=== PATIENT | female | born 1960 | race Caucasian/White ===

== ENCOUNTER 2020-12-09 18:51 | Inpatient (IN) | payer OTHER ==
[2020-12-09 21:01] VITALS: BMI 21.1
[2020-12-09] MEDS ORDERED: MENTHOL/PHENOL 1 EACH UD MM PRN (22:21)
[2020-12-09] MEDS ORDERED: NICOTINE POLACRILEX 2 MG GUM BUC PRN (22:21)
[2020-12-09] MEDS ORDERED: MAG HYDROX/AL HYDROX/SIMETH 30 ML UNIT-DOSE CUP PO PRN (22:21)
[2020-12-09] MEDS ORDERED: MAGNESIUM CITRATE 300 ML BOTTLE PO PRN (22:21)
[2020-12-09] MEDS ORDERED: BISMUTH SUBSALICYLATE 524 MG/30 ML UD PO PRN (22:21)
[2020-12-09] MEDS ORDERED: MAGNESIUM HYDROX 2400MG/30ML ORAL SUSPENSION 30 ML CUP PO PRN (22:21)
[2020-12-09] MEDS ORDERED: ACETAMINOPHEN 325 MG TABLET (FP) PO PRN (22:21)
[2020-12-10] MEDS: IBUPROFEN 400 MG TABLET (FP) PO PRN (02:20)
[2020-12-10] MEDS: METHOCARBAMOL 500 MG TABLET PO PRN ×2 (02:20→10:10)
[2020-12-10 09:31] LABS: HEMATOCRIT 40.2 % (32.4-45.2); HEMOGLOBIN 13.3 GM/dL (10.7-15.3); MCH 28.6 pg (25.7-33.7); MEAN CELL VOLUME 86.7 fl (80-96); MEAN PLT VOLUME 8.8 fl (7.5-11.1); PLATELET COUNT 297 K/MM3 (134-434); RBC 4.64 M/mm3 (3.60-5.2); RDW 17.3 % (11.6-15.6); WHITE BLOOD COUNT 8.4 K/mm3 (4.0-10.0)
[2020-12-10 09:41] LABS: ALBUMIN 3.3 g/dl (3.4-5.0)
[2020-12-10 09:42] LABS: BLOOD UREA NITROGEN 12.5 mg/dL (7-18)
[2020-12-10 09:45] LABS: CREATININE 0.8 mg/dL (0.55-1.3)
[2020-12-10 09:46] LABS: BILIRUBIN,TOTAL 0.8 mg/dL (0.2-1); TOT PROT 6.4 g/dl (6.4-8.2)
[2020-12-10] MEDS: NICOTINE 21 MG/24 HOURS TOPICAL PATCH TD SCH (10:08)
[2020-12-10] MEDS: chlordiazePOXIDE HCL 25 MG CAPSULE PO SCH ×3 (10:08→22:07)
[2020-12-10] MEDS: PRENATAL VITAMINS W/ FOLIC ACID TABLET (FP) PO SCH (10:08)
[2020-12-10] MEDS: ONDANSETRON *ODT* 4 MG TABLET SL PRN (10:10)
[2020-12-10] MEDS ORDERED: LIDOCAINE 5% TOPICAL PATCH TP ONE (11:31)
[2020-12-10] MEDS: chlordiazePOXIDE HCL 25 MG CAPSULE PO PRN (13:44)
[2020-12-10] MEDS: METHOCARBAMOL 750 MG TAB PO PRN ×2 (15:28→22:09)
[2020-12-10] MEDS: ACETAMINOPHEN 325 MG TABLET (FP) PO PRN (16:34)
[2020-12-10] MEDS: THIAMINE HCL 100 MG TABLET (FP) PO SCH (22:06)
[2020-12-10] MEDS: LIDOCAINE PATCH REMOVAL MC SCH (22:07)
[2020-12-10] MEDS: MELATONIN 5 MG TABLETS PO SCH (22:08)
[2020-12-11] MEDS: chlordiazePOXIDE HCL 25 MG CAPSULE PO PRN (01:08)
[2020-12-11] MEDS: chlordiazePOXIDE HCL 25 MG CAPSULE PO SCH ×4 (05:50→22:13)
[2020-12-11] MEDS: P-EPHED 60MG/TRIPROLIDI 2.5MG TABLET PO SCH ×5 (05:52→22:13)
[2020-12-11] MEDS ORDERED: P-EPHED 60MG/TRIPROLIDI 2.5MG TABLET PO PRN (07:53)
[2020-12-11] MEDS: LIDOCAINE 5% TOPICAL PATCH TP SCH (10:07)
[2020-12-11] MEDS: PRENATAL VITAMINS W/ FOLIC ACID TABLET (FP) PO SCH (10:07)
[2020-12-11] MEDS: NICOTINE 21 MG/24 HOURS TOPICAL PATCH TD SCH (10:07)
[2020-12-11] MEDS: ONDANSETRON *ODT* 4 MG TABLET SL PRN ×2 (10:11→17:18)
[2020-12-11] MEDS: METHOCARBAMOL 750 MG TAB PO PRN ×2 (10:11→17:18)
[2020-12-11] MEDS: ACETAMINOPHEN 325 MG TABLET (FP) PO PRN (10:11)
[2020-12-11] MEDS: SODIUM CHLORIDE NASAL SPRAY 44 ML BOTTLE NS PRN (13:30)
[2020-12-11] MEDS: AMOX TR/POT CLAV 875MG/125MG TABLETS (FP) PO SCH (17:17)
[2020-12-11] MEDS: LIDOCAINE PATCH REMOVAL MC SCH (22:11)
[2020-12-11] MEDS: THIAMINE HCL 100 MG TABLET (FP) PO SCH (22:13)
[2020-12-11] MEDS: MELATONIN 5 MG TABLETS PO SCH (22:13)
[2020-12-12] MEDS: chlordiazePOXIDE HCL 25 MG CAPSULE PO SCH ×4 (05:56→22:03)
[2020-12-12] MEDS: P-EPHED 60MG/TRIPROLIDI 2.5MG TABLET PO SCH ×3 (05:58→22:04)
[2020-12-12] MEDS: AMOX TR/POT CLAV 875MG/125MG TABLETS (FP) PO SCH ×2 (07:19→17:33)
[2020-12-12 08:09] LABS: SARS-CoV-2 NAA Not Detected (Not Detected)
[2020-12-12] MEDS: LIDOCAINE 5% TOPICAL PATCH TP SCH (10:21)
[2020-12-12] MEDS: NICOTINE 21 MG/24 HOURS TOPICAL PATCH TD SCH (10:22)
[2020-12-12] MEDS: PRENATAL VITAMINS W/ FOLIC ACID TABLET (FP) PO SCH (10:22)
[2020-12-12] MEDS: METHOCARBAMOL 750 MG TAB PO PRN ×2 (10:23→17:33)
[2020-12-12] MEDS: SODIUM CHLORIDE NASAL SPRAY 44 ML BOTTLE NS PRN (10:24)
[2020-12-12] MEDS: chlordiazePOXIDE HCL 25 MG CAPSULE PO PRN (14:04)
[2020-12-12] MEDS: ACETAMINOPHEN 325 MG TABLET (FP) PO PRN ×2 (14:06→22:08)
[2020-12-12] MEDS ORDERED: MASKS NR ONE (15:17)
[2020-12-12] MEDS: MELATONIN 5 MG TABLETS PO SCH (22:03)
[2020-12-12] MEDS: THIAMINE HCL 100 MG TABLET (FP) PO SCH (22:03)
[2020-12-12] MEDS: LIDOCAINE PATCH REMOVAL MC SCH (22:04)
[2020-12-13] MEDS ORDERED: chlordiazePOXIDE HCL 10 MG CAPSULE PO PRN
[2020-12-13] MEDS: IBUPROFEN 400 MG TABLET (FP) PO PRN (03:04)
[2020-12-13] MEDS: METHOCARBAMOL 750 MG TAB PO PRN (03:06)
[2020-12-13] MEDS: chlordiazePOXIDE HCL 10 MG CAPSULE PO SCH ×2 (06:03→10:24)
[2020-12-13] MEDS: P-EPHED 60MG/TRIPROLIDI 2.5MG TABLET PO SCH (06:06)
[2020-12-13] MEDS: ACETAMINOPHEN 325 MG TABLET (FP) PO PRN (06:07)
[2020-12-13] MEDS: AMOX TR/POT CLAV 875MG/125MG TABLETS (FP) PO SCH (07:12)
[2020-12-13 08:55] VITALS: BP 118/77; PULSE 86; TEMP 97.1
[2020-12-13] MEDS: LIDOCAINE 5% TOPICAL PATCH TP SCH (09:38)
[2020-12-13] MEDS: PRENATAL VITAMINS W/ FOLIC ACID TABLET (FP) PO SCH (09:39)
[2020-12-13] MEDS: NICOTINE 21 MG/24 HOURS TOPICAL PATCH TD SCH (09:39)
[2020-12-13 14:08] LABS: SARS-CoV-2 NAA Not Detected (Not Detected)
[2020-12-14] MEDS ORDERED: chlordiazePOXIDE HCL 10 MG CAPSULE PO SCH (05:00)
[2020-12-15] MEDS ORDERED: chlordiazePOXIDE HCL 10 MG CAPSULE PO ONE (05:00)
== END 2020-12-13 10:12 | disposition other institution (70) | DRG 897 ==
LOC: YASAS 18:51 → Y6N 12-10 00:14 → Y3N 12-10 00:21
PROVIDERS: ADMIT Allergy & Immunology; ATTEND Allergy & Immunology
PROC: HZ2ZZZZ Detoxification Services for Substance Abuse Treatment (ICD-10-PCS; principal; 2020-12-10)
DX: F10.230 Alcohol dependence with withdrawal, uncomplicated (principal); F17.210 Nicotine dependence, cigarettes, uncomplicated; F41.0 Panic disorder [episodic paroxysmal anxiety]; F90.9 Attention-deficit hyperactivity disorder, unspecified type; Z98.1 Arthrodesis status; Z56.0 Unemployment, unspecified
CPT/HCPCS: 36415; 71046-TC-FY; 80053; 85027; 86780; 93005; 93010; C9803; Q0162; U0003; U0005

== ENCOUNTER 2022-07-13 11:31 | Inpatient (IN) | payer OTHER ==
[2022-07-13 12:40] VITALS: BMI 20.9
[2022-07-13] MEDS ORDERED: ACETAMINOPHEN 325 MG TABLET (FP) PO PRN ×2 (13:00)
[2022-07-13] MEDS ORDERED: MAGNESIUM HYDROX 2400MG/30ML ORAL SUSPENSION 30 ML CUP PO PRN (13:00)
[2022-07-13] MEDS ORDERED: BENZOCAINE/MENTHOL (CHLORASEPTIC ) LOZENGE MM PRN (13:00)
[2022-07-13] MEDS ORDERED: NICOTINE 14 MG/24 HOURS TOPICAL PATCH TD PRN (13:00)
[2022-07-13] MEDS ORDERED: NICOTINE POLACRILEX 2 MG GUM BUC PRN (13:00)
[2022-07-13] MEDS ORDERED: DICYCLOMINE HCL 10 MG CAPSULE PO PRN (13:00)
[2022-07-13] MEDS ORDERED: ONDANSETRON *ODT* 4 MG TABLET SL PRN (13:00)
[2022-07-13] MEDS ORDERED: BISMUTH SUBSALICYLATE 524 MG/30 ML PO PRN (13:00)
[2022-07-13] MEDS ORDERED: hydrOXYzine PAMOATE 25 MG CAPSULE (FP) PO PRN (13:00)
[2022-07-13] MEDS ORDERED: LOPERAMIDE HCL 2 MG CAPSULE PO PRN (13:00)
[2022-07-13] MEDS ORDERED: NICOTINE 10 MG CARTRIDGE (INHALER) IH PRN (13:00)
[2022-07-13 17:04] LABS: HEMATOCRIT 41.2 % (32.4-45.2); HEMOGLOBIN 13.9 GM/dL (10.7-15.3); MCH 29.6 pg (25.7-33.7); MCHC 33.7 g/dl (32.0-36.0); MEAN CELL VOLUME 87.6 fl (80-96); MEAN PLT VOLUME 8.5 fl (7.5-11.1); PLATELET COUNT 297 10^3/uL (134-434); RDW 14.8 % (11.6-15.6); WHITE BLOOD COUNT 8.9 K/mm3 (4.0-10.0)
[2022-07-13 17:14] LABS: ALBUMIN 3.4 g/dl (3.4-5.0); BLOOD UREA NITROGEN 17.7 mg/dL (7-18)
[2022-07-13] MEDS: chlordiazePOXIDE HCL 25 MG CAPSULE PO SCH ×2 (17:15→22:15)
[2022-07-13 17:17] LABS: CREATININE 0.8 mg/dL (0.55-1.3)
[2022-07-13 17:18] LABS: TOT PROT 7.1 g/dl (6.4-8.2)
[2022-07-13 17:19] LABS: BILIRUBIN,TOTAL 0.2 mg/dL (0.2-1)
[2022-07-13] MEDS ORDERED: MELATONIN 5 MG TABLETS PO SCH (22:00)
[2022-07-13] MEDS: THIAMINE HCL 100 MG TABLET (FP) PO SCH (22:15)
[2022-07-14] MEDS: METHOCARBAMOL 500 MG TABLET PO PRN ×2 (05:42→17:49)
[2022-07-14] MEDS: IBUPROFEN 600 MG TABLET (FP) PO PRN (05:42)
[2022-07-14] MEDS: chlordiazePOXIDE HCL 25 MG CAPSULE PO SCH ×4 (05:44→22:25)
[2022-07-14] MEDS: PRENATAL VITAMINS W/ FOLIC ACID TABLET (FP) PO SCH (10:13)
[2022-07-14] MEDS: FLUTICASONE PROP 0.05% 16 GM NASAL SPRAY NS SCH ×2 (14:05→22:29)
[2022-07-14] MEDS: chlordiazePOXIDE HCL 25 MG CAPSULE PO PRN (14:21)
[2022-07-14] MEDS: MELATONIN 5 MG TABLETS PO SCH (22:24)
[2022-07-14] MEDS: THIAMINE HCL 100 MG TABLET (FP) PO SCH (22:24)
[2022-07-14] MEDS: MAG HYDROX/AL HYDROX/SIMETH 30 ML UNIT-DOSE CUP PO PRN (22:30)
[2022-07-15] MEDS: chlordiazePOXIDE HCL 25 MG CAPSULE PO PRN ×2 (03:37→15:05)
[2022-07-15] MEDS: METHOCARBAMOL 500 MG TABLET PO PRN ×3 (03:37→17:24)
[2022-07-15] MEDS: chlordiazePOXIDE HCL 25 MG CAPSULE PO SCH ×4 (05:41→22:38)
[2022-07-15] MEDS: MAG HYDROX/AL HYDROX/SIMETH 30 ML UNIT-DOSE CUP PO PRN (05:42)
[2022-07-15] MEDS: PRENATAL VITAMINS W/ FOLIC ACID TABLET (FP) PO SCH (10:18)
[2022-07-15] MEDS: FLUTICASONE PROP 0.05% 16 GM NASAL SPRAY NS SCH ×2 (10:19→22:39)
[2022-07-15] MEDS ORDERED: LIDOCAINE 5% TOPICAL PATCH TP SCH (10:45)
[2022-07-15] MEDS: AMOX TR/POT CLAV 875MG/125MG TABLETS (FP) PO SCH (18:38)
[2022-07-15] MEDS ORDERED: LIDOCAINE PATCH REMOVAL MC SCH (22:00)
[2022-07-15] MEDS: MELATONIN 5 MG TABLETS PO SCH (22:38)
[2022-07-15] MEDS: THIAMINE HCL 100 MG TABLET (FP) PO SCH (22:38)
[2022-07-16] MEDS ORDERED: chlordiazePOXIDE HCL 10 MG CAPSULE PO PRN
[2022-07-16] MEDS: chlordiazePOXIDE HCL 10 MG CAPSULE PO SCH ×4 (05:47→23:46)
[2022-07-16] MEDS: METHOCARBAMOL 500 MG TABLET PO PRN ×3 (05:49→22:43)
[2022-07-16] MEDS: AMOX TR/POT CLAV 875MG/125MG TABLETS (FP) PO SCH ×2 (07:42→17:41)
[2022-07-16] MEDS: FLUTICASONE PROP 0.05% 16 GM NASAL SPRAY NS SCH ×2 (10:45→23:45)
[2022-07-16] MEDS: PRENATAL VITAMINS W/ FOLIC ACID TABLET (FP) PO SCH (10:45)
[2022-07-16] MEDS: THIAMINE HCL 100 MG TABLET (FP) PO SCH (22:42)
[2022-07-16] MEDS: MELATONIN 5 MG TABLETS PO SCH (22:42)
[2022-07-17] MEDS ORDERED: hydrOXYzine PAMOATE 25 MG CAPSULE (FP) PO ONE (00:46)
[2022-07-17] MEDS: chlordiazePOXIDE HCL 10 MG CAPSULE PO SCH ×2 (05:45→17:45)
[2022-07-17] MEDS: AMOX TR/POT CLAV 875MG/125MG TABLETS (FP) PO SCH ×2 (08:08→17:45)
[2022-07-17] MEDS: PRENATAL VITAMINS W/ FOLIC ACID TABLET (FP) PO SCH (09:50)
[2022-07-17] MEDS: FLUTICASONE PROP 0.05% 16 GM NASAL SPRAY NS SCH ×2 (09:50→22:22)
[2022-07-17] MEDS: METHOCARBAMOL 500 MG TABLET PO PRN ×3 (09:53→22:23)
[2022-07-17] MEDS: IBUPROFEN 600 MG TABLET (FP) PO PRN (09:53)
[2022-07-17] MEDS: METHYL SALICYLATE/MENTHOL OINT 30 GM TUBE TP SCH ×2 (11:48→22:22)
[2022-07-17] MEDS: MELATONIN 5 MG TABLETS PO SCH (22:21)
[2022-07-17] MEDS: THIAMINE HCL 100 MG TABLET (FP) PO SCH (22:22)
[2022-07-18] MEDS ORDERED: chlordiazePOXIDE HCL 10 MG CAPSULE PO ONE (05:00)
[2022-07-18] MEDS: AMOX TR/POT CLAV 875MG/125MG TABLETS (FP) PO SCH ×2 (07:02→18:03)
[2022-07-18] MEDS: PRENATAL VITAMINS W/ FOLIC ACID TABLET (FP) PO SCH (10:40)
[2022-07-18] MEDS: FLUTICASONE PROP 0.05% 16 GM NASAL SPRAY NS SCH ×2 (10:41→21:16)
[2022-07-18] MEDS: METHYL SALICYLATE/MENTHOL OINT 30 GM TUBE TP SCH ×2 (10:42→21:17)
[2022-07-18 14:31] VITALS: RESP 18
[2022-07-18] MEDS: THIAMINE HCL 100 MG TABLET (FP) PO SCH (21:16)
[2022-07-18] MEDS: MELATONIN 5 MG TABLETS PO SCH (21:16)
[2022-07-18] MEDS: METHOCARBAMOL 500 MG TABLET PO PRN (21:17)
[2022-07-19] MEDS: AMOX TR/POT CLAV 875MG/125MG TABLETS (FP) PO SCH ×2 (07:02→17:12)
[2022-07-19] MEDS: PRENATAL VITAMINS W/ FOLIC ACID TABLET (FP) PO SCH (10:06)
[2022-07-19] MEDS: FLUTICASONE PROP 0.05% 16 GM NASAL SPRAY NS SCH ×2 (10:07→21:27)
[2022-07-19] MEDS: METHYL SALICYLATE/MENTHOL OINT 30 GM TUBE TP SCH ×2 (10:07→21:27)
[2022-07-19] MEDS: THIAMINE HCL 100 MG TABLET (FP) PO SCH (21:27)
[2022-07-19] MEDS: MELATONIN 5 MG TABLETS PO SCH (21:27)
[2022-07-20] MEDS: AMOX TR/POT CLAV 875MG/125MG TABLETS (FP) PO SCH (07:04)
[2022-07-20] MEDS: METHYL SALICYLATE/MENTHOL OINT 30 GM TUBE TP SCH ×2 (09:59→21:32)
[2022-07-20] MEDS: FLUTICASONE PROP 0.05% 16 GM NASAL SPRAY NS SCH ×2 (09:59→21:32)
[2022-07-20] MEDS: PRENATAL VITAMINS W/ FOLIC ACID TABLET (FP) PO SCH (09:59)
[2022-07-20] MEDS: MELATONIN 5 MG TABLETS PO SCH (21:32)
[2022-07-20] MEDS: THIAMINE HCL 100 MG TABLET (FP) PO SCH (21:32)
[2022-07-21] MEDS: PRENATAL VITAMINS W/ FOLIC ACID TABLET (FP) PO SCH (10:08)
[2022-07-21] MEDS: FLUTICASONE PROP 0.05% 16 GM NASAL SPRAY NS SCH ×2 (10:08→21:21)
[2022-07-21] MEDS: METHYL SALICYLATE/MENTHOL OINT 30 GM TUBE TP SCH ×2 (10:08→21:21)
[2022-07-21] MEDS: IBUPROFEN 600 MG TABLET (FP) PO PRN (10:10)
[2022-07-21] MEDS: THIAMINE HCL 100 MG TABLET (FP) PO SCH (21:21)
[2022-07-21] MEDS: MELATONIN 5 MG TABLETS PO SCH (21:21)
[2022-07-22] MEDS: METHYL SALICYLATE/MENTHOL OINT 30 GM TUBE TP SCH ×2 (09:51→21:42)
[2022-07-22] MEDS: FLUTICASONE PROP 0.05% 16 GM NASAL SPRAY NS SCH ×2 (09:51→21:43)
[2022-07-22] MEDS: PRENATAL VITAMINS W/ FOLIC ACID TABLET (FP) PO SCH (09:51)
[2022-07-22] MEDS: IBUPROFEN 600 MG TABLET (FP) PO PRN (09:52)
[2022-07-22] MEDS: MELATONIN 5 MG TABLETS PO SCH (21:42)
[2022-07-22] MEDS: THIAMINE HCL 100 MG TABLET (FP) PO SCH (21:42)
[2022-07-22] MEDS: IBUPROFEN 400 MG TABLET (FP) PO PRN (23:31)
[2022-07-23] MEDS: PRENATAL VITAMINS W/ FOLIC ACID TABLET (FP) PO SCH (10:12)
[2022-07-23] MEDS: METHYL SALICYLATE/MENTHOL OINT 30 GM TUBE TP SCH ×2 (10:12→21:54)
[2022-07-23] MEDS: FLUTICASONE PROP 0.05% 16 GM NASAL SPRAY NS SCH ×2 (10:12→21:54)
[2022-07-23] MEDS: IBUPROFEN 600 MG TABLET (FP) PO PRN (10:13)
[2022-07-23] MEDS: THIAMINE HCL 100 MG TABLET (FP) PO SCH (21:53)
[2022-07-23] MEDS: MELATONIN 5 MG TABLETS PO SCH (21:53)
[2022-07-24] MEDS: PRENATAL VITAMINS W/ FOLIC ACID TABLET (FP) PO SCH (10:17)
[2022-07-24] MEDS: METHYL SALICYLATE/MENTHOL OINT 30 GM TUBE TP SCH ×2 (10:17→21:36)
[2022-07-24] MEDS: FLUTICASONE PROP 0.05% 16 GM NASAL SPRAY NS SCH ×2 (10:19→21:36)
[2022-07-24] MEDS: IBUPROFEN 600 MG TABLET (FP) PO PRN (10:19)
[2022-07-24] MEDS: ARTIFICIAL TEARS (POLYVINYL ALCOHOL) OPTH DROPS OU PRN (14:39)
[2022-07-24] MEDS: SODIUM CHLORIDE NASAL SPRAY 44 ML BOTTLE NS PRN (14:41)
[2022-07-24] MEDS: MELATONIN 5 MG TABLETS PO SCH (21:36)
[2022-07-24] MEDS: THIAMINE HCL 100 MG TABLET (FP) PO SCH (21:36)
[2022-07-24] MEDS: IBUPROFEN 400 MG TABLET (FP) PO PRN (21:38)
[2022-07-24] MEDS: MINERAL OIL/PETROLATUM,WHITE 3.5 GM TUBE OU SCH (21:40)
[2022-07-25] MEDS: FLUTICASONE PROP 0.05% 16 GM NASAL SPRAY NS SCH ×2 (09:26→21:52)
[2022-07-25] MEDS: METHYL SALICYLATE/MENTHOL OINT 30 GM TUBE TP SCH ×2 (09:26→21:54)
[2022-07-25] MEDS: PRENATAL VITAMINS W/ FOLIC ACID TABLET (FP) PO SCH (09:26)
[2022-07-25] MEDS: ARTIFICIAL TEARS (POLYVINYL ALCOHOL) OPTH DROPS OU PRN (09:27)
[2022-07-25] MEDS: IBUPROFEN 600 MG TABLET (FP) PO PRN (09:28)
[2022-07-25] MEDS: MELATONIN 5 MG TABLETS PO SCH (21:50)
[2022-07-25] MEDS: THIAMINE HCL 100 MG TABLET (FP) PO SCH (21:50)
[2022-07-25] MEDS: SODIUM CHLORIDE NASAL SPRAY 44 ML BOTTLE NS PRN (21:51)
[2022-07-25] MEDS: MINERAL OIL/PETROLATUM,WHITE 3.5 GM TUBE OU SCH (21:54)
[2022-07-26] MEDS: METHYL SALICYLATE/MENTHOL OINT 30 GM TUBE TP SCH ×2 (10:10→21:51)
[2022-07-26] MEDS: FLUTICASONE PROP 0.05% 16 GM NASAL SPRAY NS SCH ×2 (10:10→21:50)
[2022-07-26] MEDS: PRENATAL VITAMINS W/ FOLIC ACID TABLET (FP) PO SCH (10:10)
[2022-07-26] MEDS: IBUPROFEN 600 MG TABLET (FP) PO PRN (10:11)
[2022-07-26] MEDS: ARTIFICIAL TEARS (POLYVINYL ALCOHOL) OPTH DROPS OU PRN (10:11)
[2022-07-26] MEDS: MELATONIN 5 MG TABLETS PO SCH (21:48)
[2022-07-26] MEDS: THIAMINE HCL 100 MG TABLET (FP) PO SCH (21:48)
[2022-07-26] MEDS: IBUPROFEN 400 MG TABLET (FP) PO PRN (21:49)
[2022-07-26] MEDS: MINERAL OIL/PETROLATUM,WHITE 3.5 GM TUBE OU SCH (21:50)
[2022-07-27 07:22] VITALS: TEMP 97.5
[2022-07-27] MEDS: PRENATAL VITAMINS W/ FOLIC ACID TABLET (FP) PO SCH (09:31)
[2022-07-27] MEDS: ARTIFICIAL TEARS (POLYVINYL ALCOHOL) OPTH DROPS OU PRN ×2 (09:31→21:17)
[2022-07-27] MEDS: IBUPROFEN 600 MG TABLET (FP) PO PRN (09:31)
[2022-07-27] MEDS: METHYL SALICYLATE/MENTHOL OINT 30 GM TUBE TP SCH ×2 (09:31→21:18)
[2022-07-27] MEDS: FLUTICASONE PROP 0.05% 16 GM NASAL SPRAY NS SCH ×3 (09:31→21:18)
[2022-07-27] MEDS: THIAMINE HCL 100 MG TABLET (FP) PO SCH (21:15)
[2022-07-27] MEDS: MELATONIN 5 MG TABLETS PO SCH (21:15)
[2022-07-27] MEDS: IBUPROFEN 400 MG TABLET (FP) PO PRN (21:16)
[2022-07-27] MEDS: MINERAL OIL/PETROLATUM,WHITE 3.5 GM TUBE OU SCH (21:18)
[2022-07-28 06:58] VITALS: BP 149/82; PULSE 79
[2022-07-28] MEDS: IBUPROFEN 600 MG TABLET (FP) PO PRN (09:14)
[2022-07-28] MEDS: PRENATAL VITAMINS W/ FOLIC ACID TABLET (FP) PO SCH (09:14)
[2022-07-28] MEDS: ARTIFICIAL TEARS (POLYVINYL ALCOHOL) OPTH DROPS OU PRN (09:15)
[2022-07-28] MEDS: FLUTICASONE PROP 0.05% 16 GM NASAL SPRAY NS SCH (09:16)
[2022-07-28] MEDS: METHYL SALICYLATE/MENTHOL OINT 30 GM TUBE TP SCH (09:30)
== END 2022-07-28 09:55 | disposition home or self-care (01) | DRG 895 ==
LOC: YASAS 11:31 → Y6N 15:20 → UNDODISIN 07-18 13:38 → Y5N 07-18 13:46
PROVIDERS: ADMIT Allergy & Immunology; ATTEND Surgery
PROC: HZ2ZZZZ Detoxification Services for Substance Abuse Treatment (ICD-10-PCS; 2022-07-13)
PROC: HZ42ZZZ Group Counseling for Substance Abuse Treatment, Cognitive-Behavioral (ICD-10-PCS; principal; 2022-07-18)
DX: F10.20 Alcohol dependence, uncomplicated (principal); F14.20 Cocaine dependence, uncomplicated; F19.282 Other psychoactive substance dependence with psychoactive substance-induced sleep disorder; F17.210 Nicotine dependence, cigarettes, uncomplicated; F41.9 Anxiety disorder, unspecified; F41.0 Panic disorder [episodic paroxysmal anxiety]; F90.9 Attention-deficit hyperactivity disorder, unspecified type; M19.90 Unspecified osteoarthritis, unspecified site; M51.26 Other intervertebral disc displacement, lumbar region; R76.11 Nonspecific reaction to tuberculin skin test without active tuberculosis; Z28.310 Unvaccinated for COVID-19; Z28.9 Immunization not carried out for unspecified reason
CPT/HCPCS: 36415; 71046-TC-FY; 80053; 85027; 86780; 87811; 93005; 93010; C9803-CS; U0003; U0005

== ENCOUNTER 2022-10-20 11:21 | Inpatient (IN) | payer OTHER ==
[2022-10-20 11:46] VITALS: BMI 20.9
[2022-10-20] MEDS ORDERED: BISMUTH SUBSALICYLATE 524 MG/30 ML PO PRN (12:45)
[2022-10-20] MEDS ORDERED: BENZOCAINE/MENTHOL (CHLORASEPTIC ) LOZENGE MM PRN (12:45)
[2022-10-20] MEDS ORDERED: LOPERAMIDE HCL 2 MG CAPSULE PO PRN (12:45)
[2022-10-20] MEDS ORDERED: ONDANSETRON *ODT* 4 MG TABLET SL PRN (12:45)
[2022-10-20] MEDS ORDERED: NICOTINE 10 MG CARTRIDGE (INHALER) IH PRN (12:45)
[2022-10-20] MEDS ORDERED: ACETAMINOPHEN 325 MG TABLET (FP) PO PRN (12:45)
[2022-10-20] MEDS ORDERED: MAG HYDROX/AL HYDROX/SIMETH 30 ML UNIT-DOSE CUP PO PRN (12:45)
[2022-10-20] MEDS ORDERED: DICYCLOMINE HCL 10 MG CAPSULE PO PRN (12:45)
[2022-10-20] MEDS ORDERED: IBUPROFEN 400 MG TABLET (FP) PO PRN (12:45)
[2022-10-20] MEDS ORDERED: NICOTINE 21 MG/24 HOURS TOPICAL PATCH TD PRN (12:45)
[2022-10-20] MEDS ORDERED: hydrOXYzine PAMOATE 25 MG CAPSULE (FP) PO PRN (12:45)
[2022-10-20] MEDS ORDERED: MAGNESIUM HYDROX 2400MG/30ML ORAL SUSPENSION 30 ML CUP PO PRN (12:45)
[2022-10-20] MEDS ORDERED: NICOTINE POLACRILEX 4 MG GUM BUC PRN (12:45)
[2022-10-20] MEDS ORDERED: POLYETHYLENE GLYCOL (HEALTHYLAX) 3350 17 GM PACKET PO PRN (12:45)
[2022-10-20] MEDS: METHOCARBAMOL 500 MG TABLET PO PRN (14:01)
[2022-10-20] MEDS: chlordiazePOXIDE HCL 25 MG CAPSULE PO PRN ×2 (14:01→20:24)
[2022-10-20] MEDS: chlordiazePOXIDE HCL 25 MG CAPSULE PO SCH ×2 (17:16→22:14)
[2022-10-20] MEDS: ACETAMINOPHEN 325 MG TABLET (FP) PO PRN (17:16)
[2022-10-20] MEDS: THIAMINE HCL 100 MG TABLET (FP) PO SCH (22:14)
[2022-10-20] MEDS: MELATONIN 5 MG TABLETS PO SCH (22:14)
[2022-10-20] MEDS: IBUPROFEN 600 MG TABLET (FP) PO PRN (22:15)
[2022-10-20] MEDS ORDERED: diphenhydrAMINE HCL 25 MG CAPSULE (FP) PO ONE (22:51)
[2022-10-20] MEDS: COLLOIDAL OATMEAL 1 BAR EACH TP PRN (22:56)
[2022-10-20] MEDS ORDERED: EPINEPHrine/PF 1 MG/1 ML (1:1,000) AMPULE IM ONE (23:45)
[2022-10-21] MEDS: chlordiazePOXIDE HCL 25 MG CAPSULE PO SCH ×4 (04:28→22:22)
[2022-10-21] MEDS: COLLOIDAL OATMEAL 1 BAR EACH TP PRN (10:03)
[2022-10-21] MEDS: HYDROCORTISONE 1% TOPICAL CREAM 30 GM TUBE TP PRN ×2 (10:03→18:39)
[2022-10-21] MEDS: PRENATAL VITAMINS W/ FOLIC ACID TABLET (FP) PO SCH (10:04)
[2022-10-21 11:06] LABS: HEMOGLOBIN 14.5 GM/dL (10.7-15.3); MCH 31.4 pg (25.7-33.7); MCHC 35.4 g/dl (32.0-36.0); MEAN CELL VOLUME 88.6 fl (80-96); MEAN PLT VOLUME 9.4 fl (7.5-11.1); PLATELET COUNT 314 10^3/uL (134-434); RBC 4.63 M/mm3 (3.60-5.2); RDW 14.2 % (11.6-15.6); WHITE BLOOD COUNT 5.7 K/mm3 (4.0-10.0)
[2022-10-21 11:35] LABS: CALCIUM 9.3 mg/dL (8.5-10.1)
[2022-10-21 11:36] LABS: BLOOD UREA NITROGEN 9.9 mg/dL (7-18)
[2022-10-21 11:39] LABS: CREATININE 0.8 mg/dL (0.55-1.3)
[2022-10-21 11:40] LABS: BILIRUBIN,TOTAL 0.6 mg/dL (0.2-1); TOT PROT 7.7 g/dl (6.4-8.2)
[2022-10-21] MEDS: ACETAMINOPHEN 325 MG TABLET (FP) PO PRN (14:18)
[2022-10-21] MEDS: chlordiazePOXIDE HCL 25 MG CAPSULE PO PRN (14:19)
[2022-10-21] MEDS: MELATONIN 5 MG TABLETS PO SCH (22:22)
[2022-10-21] MEDS: THIAMINE HCL 100 MG TABLET (FP) PO SCH (22:22)
[2022-10-21] MEDS: IBUPROFEN 600 MG TABLET (FP) PO PRN (22:24)
[2022-10-21] MEDS: METHOCARBAMOL 500 MG TABLET PO PRN (22:25)
[2022-10-22] MEDS: chlordiazePOXIDE HCL 25 MG CAPSULE PO SCH ×4 (05:37→22:04)
[2022-10-22] MEDS: METHOCARBAMOL 500 MG TABLET PO PRN ×2 (05:39→22:06)
[2022-10-22] MEDS: PRENATAL VITAMINS W/ FOLIC ACID TABLET (FP) PO SCH (10:15)
[2022-10-22] MEDS: ACETAMINOPHEN 325 MG TABLET (FP) PO PRN (17:33)
[2022-10-22] MEDS: THIAMINE HCL 100 MG TABLET (FP) PO SCH (22:04)
[2022-10-22] MEDS: MELATONIN 5 MG TABLETS PO SCH (22:04)
[2022-10-22] MEDS: HYDROCORTISONE 1% TOPICAL CREAM 30 GM TUBE TP PRN (22:05)
[2022-10-23] MEDS ORDERED: chlordiazePOXIDE HCL 10 MG CAPSULE PO PRN
[2022-10-23] MEDS: METHOCARBAMOL 500 MG TABLET PO PRN ×2 (05:20→10:06)
[2022-10-23] MEDS: chlordiazePOXIDE HCL 10 MG CAPSULE PO SCH ×4 (05:20→22:16)
[2022-10-23] MEDS: PRENATAL VITAMINS W/ FOLIC ACID TABLET (FP) PO SCH (10:06)
[2022-10-23] MEDS: HYDROCORTISONE 1% TOPICAL CREAM 30 GM TUBE TP PRN ×2 (10:58→22:36)
[2022-10-23] MEDS ORDERED: hydrOXYzine PAMOATE 25 MG CAPSULE (FP) PO ONE (14:02)
[2022-10-23] MEDS: MELATONIN 5 MG TABLETS PO SCH (22:16)
[2022-10-23] MEDS: THIAMINE HCL 100 MG TABLET (FP) PO SCH (22:16)
[2022-10-24] MEDS: chlordiazePOXIDE HCL 10 MG CAPSULE PO SCH ×2 (05:56→17:17)
[2022-10-24] MEDS: PRENATAL VITAMINS W/ FOLIC ACID TABLET (FP) PO SCH (10:17)
[2022-10-24] MEDS: METHOCARBAMOL 500 MG TABLET PO PRN ×2 (10:17→21:37)
[2022-10-24] MEDS: ACETAMINOPHEN 325 MG TABLET (FP) PO PRN (17:17)
[2022-10-24] MEDS: HYDROCORTISONE 1% TOPICAL CREAM 30 GM TUBE TP PRN (17:21)
[2022-10-24] MEDS: MELATONIN 5 MG TABLETS PO SCH (21:37)
[2022-10-24] MEDS: THIAMINE HCL 100 MG TABLET (FP) PO SCH (21:37)
[2022-10-25] MEDS ORDERED: chlordiazePOXIDE HCL 10 MG CAPSULE PO ONE (05:00)
[2022-10-25] MEDS: METHOCARBAMOL 500 MG TABLET PO PRN ×2 (05:39→17:51)
[2022-10-25] MEDS: PRENATAL VITAMINS W/ FOLIC ACID TABLET (FP) PO SCH (10:11)
[2022-10-25] MEDS: IBUPROFEN 600 MG TABLET (FP) PO PRN (17:51)
[2022-10-25] MEDS: MELATONIN 5 MG TABLETS PO SCH (21:10)
[2022-10-25] MEDS: THIAMINE HCL 100 MG TABLET (FP) PO SCH (21:10)
[2022-10-25] MEDS: ACETAMINOPHEN 325 MG TABLET (FP) PO PRN (21:11)
[2022-10-26] MEDS: METHOCARBAMOL 500 MG TABLET PO PRN (03:23)
[2022-10-26] MEDS: PRENATAL VITAMINS W/ FOLIC ACID TABLET (FP) PO SCH (09:30)
[2022-10-26 09:52] VITALS: BP 144/92; PULSE 93; RESP 18; TEMP 97.1
== END 2022-10-26 09:32 | disposition other institution (70) | DRG 897 ==
LOC: YASAS 11:21 → Y3N 12:42
PROVIDERS: ADMIT Allergy & Immunology; ATTEND Surgery
PROC: HZ2ZZZZ Detoxification Services for Substance Abuse Treatment (ICD-10-PCS; principal; 2022-10-20)
DX: F10.230 Alcohol dependence with withdrawal, uncomplicated (principal); F14.20 Cocaine dependence, uncomplicated; F17.213 Nicotine dependence, cigarettes, with withdrawal; F41.9 Anxiety disorder, unspecified; F41.0 Panic disorder [episodic paroxysmal anxiety]; F90.9 Attention-deficit hyperactivity disorder, unspecified type; M15.3 Secondary multiple arthritis; L23.3 Allergic contact dermatitis due to drugs in contact with skin; L29.8 Other pruritus
CPT/HCPCS: 36415; 80053; 85027; 86780; 87811; C9803-CS; U0003; U0005

== ENCOUNTER 2022-10-21 00:34 | Emergency (ER) | payer OTHER ==
[2022-10-21 00:52] VITALS: BP 118/79; PULSE 77; RESP 18; TEMP 97.9; BMI 21.7
[2022-10-21] MEDS ORDERED: chlordiazePOXIDE HCL 25 MG CAPSULE PO ONE (02:07)
[2022-10-21] MEDS ORDERED: chlordiazePOXIDE HCL 25 MG CAPSULE ONE (02:10)
== END 2022-10-21 04:03 | disposition home or self-care (01) ==
LOC: JER 00:34
DX: T78.40XA Allergy, unspecified, initial encounter (principal)
CPT/HCPCS: 99283-25

== ENCOUNTER 2023-01-21 17:24 | Inpatient (IN) | payer OTHER ==
[2023-01-21 18:06] VITALS: RESP 18; BMI 18.8
[2023-01-21] MEDS ORDERED: IBUPROFEN 600 MG TABLET (FP) PO PRN (22:40)
[2023-01-21] MEDS ORDERED: guaiFENesin 600 MG TABLET.ER (FP) PO PRN (22:40)
[2023-01-21] MEDS ORDERED: POLYETHYLENE GLYCOL (HEALTHYLAX) 3350 17 GM PACKET PO PRN (22:40)
[2023-01-21] MEDS ORDERED: NICOTINE 10 MG CARTRIDGE (INHALER) IH PRN (22:40)
[2023-01-21] MEDS ORDERED: NALOXONE HCL 0.4 MG/ML VIAL IM PRN (22:40)
[2023-01-21] MEDS ORDERED: BENZOCAINE/MENTHOL (CHLORASEPTIC ) LOZENGE MM PRN (22:40)
[2023-01-21] MEDS ORDERED: MAG HYDROX/AL HYDROX/SIMETH 30 ML UNIT-DOSE CUP PO PRN (22:40)
[2023-01-21] MEDS ORDERED: AMMONIUM LACTATE 12% LOTION 225 GM BOTTLE TP PRN (22:40)
[2023-01-21] MEDS ORDERED: LOPERAMIDE HCL 2 MG CAPSULE PO PRN (22:40)
[2023-01-21] MEDS ORDERED: MAGNESIUM HYDROX 2400MG/30ML ORAL SUSPENSION 30 ML CUP PO PRN (22:40)
[2023-01-21] MEDS ORDERED: NALOXONE HCL (KLOXXADO) 8 MG SPRAY NS PRN (22:40)
[2023-01-21] MEDS ORDERED: ACETAMINOPHEN 325 MG TABLET (FP) PO PRN (22:40)
[2023-01-21] MEDS ORDERED: IBUPROFEN 400 MG TABLET (FP) PO PRN (22:40)
[2023-01-21] MEDS ORDERED: BENZONATATE 200 MG CAPSULE PO PRN (22:40)
[2023-01-21] MEDS ORDERED: COLLOIDAL OATMEAL 1 BAR EACH TP PRN (22:40)
[2023-01-22] MEDS: MELATONIN 5 MG TABLETS PO SCH ×2 (01:30→21:12)
[2023-01-22 10:26] LABS: HEMATOCRIT 39.5 % (32.4-45.2); HEMOGLOBIN 13.1 GM/dL (10.7-15.3); MCH 28.7 pg (25.7-33.7); MCHC 33.2 g/dl (32.0-36.0); MEAN CELL VOLUME 86.5 fl (80-96); MEAN PLT VOLUME 9.5 fl (7.5-11.1); PLATELET COUNT 296 10^3/uL (134-434); RBC 4.56 M/mm3 (3.60-5.2); RDW 14.5 % (11.6-15.6); WHITE BLOOD COUNT 7.2 K/mm3 (4.0-10.0)
[2023-01-22 10:28] LABS: URINE APPEARANCE CLEAR; URINE BILIRUBIN NEGATIVE (NEGATIVE); URINE COLOR YELLOW; URINE GLUCOSE (UA) NEGATIVE (NEGATIVE); URINE KETONE NEGATIVE (NEGATIVE); URINE LEUK ESTERASE NEGATIVE (NEGATIVE); URINE NITRITE NEGATIVE (NEGATIVE); URINE PROTEIN NEGATIVE (NEGATIVE); URINE UROBILINOGEN 0.2 mg/dL (0.2-1.0)
[2023-01-22 10:31] LABS: POTASSIUM 4.3 mmol/L (3.5-5.1)
[2023-01-22 10:34] LABS: BLOOD UREA NITROGEN 17.6 mg/dL (7-18)
[2023-01-22 10:37] LABS: CREATININE 0.8 mg/dL (0.55-1.3)
[2023-01-22 10:39] LABS: BILIRUBIN,TOTAL 0.4 mg/dL (0.2-1); TOT PROT 6.4 g/dl (6.4-8.2)
[2023-01-22] MEDS: NICOTINE 14 MG/24 HOURS TOPICAL PATCH TD SCH (11:09)
[2023-01-22] MEDS: PRENATAL VITAMINS W/ FOLIC ACID TABLET (FP) PO SCH (11:09)
[2023-01-22 12:20] LABS: HIV INTERPRETATION NEGATIVE (NEGATIVE)
[2023-01-22] MEDS ORDERED: THIAMINE HCL 100 MG TABLET (FP) PO SCH (22:00)
[2023-01-23] MEDS: NICOTINE 14 MG/24 HOURS TOPICAL PATCH TD SCH (09:30)
[2023-01-23] MEDS: PRENATAL VITAMINS W/ FOLIC ACID TABLET (FP) PO SCH (09:30)
[2023-01-23] MEDS ORDERED: ATOMOXETINE HCL 25 MG CAPSULE PO SCH (10:00)
[2023-01-23] MEDS ORDERED: BUPRENORPHINE/NALOXONE 2 MG/0.5 MG FILM PACKET SL SCH (15:45)
[2023-01-23] MEDS ORDERED: AMOX TR/POT CLAV 500MG/125MG TABLETS (FP) PO SCH (17:30)
[2023-01-23 18:52] VITALS: BP 142/86; PULSE 91; TEMP 97.9
== END 2023-01-23 19:23 | disposition left against medical advice (07) | DRG 894 ==
LOC: YASAS 17:24 → Y5N 23:40
PROVIDERS: ADMIT Allergy & Immunology; ATTEND Psychiatry & Neurology Pain Medicine
PROC: HZ42ZZZ Group Counseling for Substance Abuse Treatment, Cognitive-Behavioral (ICD-10-PCS; principal; 2023-01-21)
DX: F14.20 Cocaine dependence, uncomplicated (principal); F11.20 Opioid dependence, uncomplicated; F17.210 Nicotine dependence, cigarettes, uncomplicated; F41.9 Anxiety disorder, unspecified; K04.7 Periapical abscess without sinus; R76.11 Nonspecific reaction to tuberculin skin test without active tuberculosis; Z86.59 Personal history of other mental and behavioral disorders
CPT/HCPCS: 36415; 80053; 81003; 85027; 86780; 87389; 93005; 93010; C9803-CS; U0003; U0005

== ENCOUNTER 2023-05-15 11:23 | Inpatient (IN) | payer OTHER ==
[2023-05-15 12:14] VITALS: BMI 20.5
[2023-05-15] MEDS ORDERED: ACETAMINOPHEN 325 MG TABLET (FP) PO PRN (14:22)
[2023-05-15] MEDS ORDERED: MAG HYDROX/AL HYDROX/SIMETH 30 ML UNIT-DOSE CUP PO PRN (14:22)
[2023-05-15] MEDS ORDERED: NALOXONE HCL (KLOXXADO) 8 MG SPRAY NS PRN (14:22)
[2023-05-15] MEDS ORDERED: BENZOCAINE/MENTHOL (CHLORASEPTIC ) LOZENGE MM PRN (14:22)
[2023-05-15] MEDS ORDERED: IBUPROFEN 400 MG TABLET (FP) PO PRN (14:22)
[2023-05-15] MEDS ORDERED: BISMUTH SUBSALICYLATE 524 MG/30 ML PO PRN (14:22)
[2023-05-15] MEDS ORDERED: DICYCLOMINE HCL 10 MG CAPSULE PO PRN (14:22)
[2023-05-15] MEDS ORDERED: MAGNESIUM HYDROX 2400MG/30ML ORAL SUSPENSION 30 ML CUP PO PRN (14:22)
[2023-05-15] MEDS ORDERED: guaiFENesin 600 MG TABLET.ER (FP) PO PRN (14:22)
[2023-05-15] MEDS ORDERED: BENZONATATE 200 MG CAPSULE PO PRN (14:22)
[2023-05-15] MEDS ORDERED: ONDANSETRON *ODT* 4 MG TABLET SL PRN (14:22)
[2023-05-15] MEDS ORDERED: POLYETHYLENE GLYCOL (HEALTHYLAX) 3350 17 GM PACKET PO PRN (14:22)
[2023-05-15] MEDS ORDERED: LOPERAMIDE HCL 2 MG CAPSULE PO PRN (14:22)
[2023-05-15] MEDS ORDERED: NALOXONE HCL 0.4 MG/ML VIAL IM PRN (14:22)
[2023-05-15] MEDS: NICOTINE 21 MG/24 HOURS TOPICAL PATCH TD SCH (15:37)
[2023-05-15] MEDS: chlordiazePOXIDE HCL 25 MG CAPSULE PO SCH ×2 (16:03→22:36)
[2023-05-15] MEDS ORDERED: chlordiazePOXIDE HCL 25 MG CAPSULE ONE (16:09)
[2023-05-15] MEDS ORDERED: NICOTINE 21 MG/24 HOURS TOPICAL PATCH ONE (16:10)
[2023-05-15] MEDS: hydrOXYzine PAMOATE 25 MG CAPSULE (FP) PO PRN (17:55)
[2023-05-15] MEDS: METHOCARBAMOL 500 MG TABLET PO PRN (17:55)
[2023-05-15] MEDS: IBUPROFEN 600 MG TABLET (FP) PO PRN (17:56)
[2023-05-15] MEDS: chlordiazePOXIDE HCL 25 MG CAPSULE PO PRN (20:07)
[2023-05-15] MEDS: THIAMINE HCL 100 MG TABLET (FP) PO SCH (22:35)
[2023-05-15] MEDS: BUPRENORPHINE/NALOXONE 2 MG/0.5 MG FILM PACKET SL SCH (22:35)
[2023-05-15] MEDS: MELATONIN 5 MG TABLETS PO SCH (22:35)
[2023-05-16] MEDS: chlordiazePOXIDE HCL 25 MG CAPSULE PO PRN ×2 (02:08→14:05)
[2023-05-16] MEDS: chlordiazePOXIDE HCL 25 MG CAPSULE PO SCH ×4 (05:56→22:34)
[2023-05-16] MEDS: IBUPROFEN 600 MG TABLET (FP) PO PRN (06:00)
[2023-05-16] MEDS: PRENATAL VITAMINS W/ FOLIC ACID TABLET (FP) PO SCH (10:03)
[2023-05-16] MEDS: BUPRENORPHINE/NALOXONE 2 MG/0.5 MG FILM PACKET SL SCH ×2 (10:04→22:34)
[2023-05-16] MEDS: NICOTINE 21 MG/24 HOURS TOPICAL PATCH TD SCH (10:05)
[2023-05-16 11:51] LABS: HEMATOCRIT 38.3 % (32.4-45.2); HEMOGLOBIN 13.2 GM/dL (10.7-15.3); MCH 31.1 pg (25.7-33.7); MCHC 34.4 g/dl (32.0-36.0); MEAN CELL VOLUME 90.3 fl (80-96); MEAN PLT VOLUME 8.6 fl (7.5-11.1); PLATELET COUNT 382 10^3/uL (134-434); RBC 4.24 M/mm3 (3.60-5.2); RDW 14.6 % (11.6-15.6); WHITE BLOOD COUNT 7.9 K/mm3 (4.0-10.0)
[2023-05-16 11:54] LABS: POTASSIUM 4.1 mmol/L (3.5-5.1)
[2023-05-16 11:59] LABS: ALBUMIN 3.3 g/dl (3.4-5.0); CALCIUM 8.8 mg/dL (8.5-10.1)
[2023-05-16 12:00] LABS: BLOOD UREA NITROGEN 17.3 mg/dL (7-18)
[2023-05-16 12:03] LABS: CREATININE 0.8 mg/dL (0.55-1.3)
[2023-05-16 12:04] LABS: BILIRUBIN,TOTAL 0.2 mg/dL (0.2-1); TOT PROT 6.4 g/dl (6.4-8.2)
[2023-05-16 12:53] LABS: HIV INTERPRETATION NEGATIVE (NEGATIVE)
[2023-05-16] MEDS: LIDOCAINE 5% TOPICAL PATCH TP SCH (19:43)
[2023-05-16] MEDS: hydrOXYzine PAMOATE 25 MG CAPSULE (FP) PO PRN (20:00)
[2023-05-16] MEDS: METHOCARBAMOL 500 MG TABLET PO PRN (20:01)
[2023-05-16] MEDS: THIAMINE HCL 100 MG TABLET (FP) PO SCH (22:34)
[2023-05-16] MEDS: MELATONIN 5 MG TABLETS PO SCH (22:34)
[2023-05-16] MEDS: LIDOCAINE PATCH REMOVAL MC SCH (22:42)
[2023-05-17] MEDS: IBUPROFEN 600 MG TABLET (FP) PO PRN ×2 (00:29→19:14)
[2023-05-17] MEDS: chlordiazePOXIDE HCL 25 MG CAPSULE PO PRN (03:12)
[2023-05-17] MEDS: METHOCARBAMOL 500 MG TABLET PO PRN ×3 (03:12→21:10)
[2023-05-17] MEDS: chlordiazePOXIDE HCL 25 MG CAPSULE PO SCH ×4 (05:18→22:16)
[2023-05-17] MEDS: LIDOCAINE 5% TOPICAL PATCH TP SCH (10:18)
[2023-05-17] MEDS: BUPRENORPHINE/NALOXONE 2 MG/0.5 MG FILM PACKET SL SCH (10:19)
[2023-05-17] MEDS: PRENATAL VITAMINS W/ FOLIC ACID TABLET (FP) PO SCH (10:19)
[2023-05-17] MEDS ORDERED: BUPRENORPHINE/NALOXONE 2 MG/0.5 MG FILM PACKET SL ONE (11:47)
[2023-05-17] MEDS: hydrOXYzine PAMOATE 25 MG CAPSULE (FP) PO PRN (15:42)
[2023-05-17] MEDS: BUPRENORPHINE/NALOXONE 4 MG/1 MG FILM PACKET SL SCH (21:12)
[2023-05-17] MEDS: THIAMINE HCL 100 MG TABLET (FP) PO SCH (22:16)
[2023-05-17] MEDS: MELATONIN 5 MG TABLETS PO SCH (22:16)
[2023-05-17] MEDS: LIDOCAINE PATCH REMOVAL MC SCH (22:18)
[2023-05-18] MEDS ORDERED: chlordiazePOXIDE HCL 10 MG CAPSULE PO PRN
[2023-05-18] MEDS: chlordiazePOXIDE HCL 10 MG CAPSULE PO SCH ×4 (05:57→22:06)
[2023-05-18] MEDS: PRENATAL VITAMINS W/ FOLIC ACID TABLET (FP) PO SCH (09:32)
[2023-05-18] MEDS: LIDOCAINE 5% TOPICAL PATCH TP SCH (09:32)
[2023-05-18] MEDS: BUPRENORPHINE/NALOXONE 4 MG/1 MG FILM PACKET SL SCH ×2 (09:33→21:06)
[2023-05-18] MEDS: hydrOXYzine PAMOATE 25 MG CAPSULE (FP) PO PRN (16:00)
[2023-05-18] MEDS: MELATONIN 5 MG TABLETS PO SCH (22:05)
[2023-05-18] MEDS: THIAMINE HCL 100 MG TABLET (FP) PO SCH (22:05)
[2023-05-18] MEDS: LIDOCAINE PATCH REMOVAL MC SCH (22:05)
[2023-05-19] MEDS: chlordiazePOXIDE HCL 10 MG CAPSULE PO SCH ×2 (05:25→18:00)
[2023-05-19] MEDS: PRENATAL VITAMINS W/ FOLIC ACID TABLET (FP) PO SCH (09:21)
[2023-05-19] MEDS: BUPRENORPHINE/NALOXONE 4 MG/1 MG FILM PACKET SL SCH ×2 (09:21→21:50)
[2023-05-19] MEDS: LIDOCAINE 5% TOPICAL PATCH TP SCH (09:21)
[2023-05-19] MEDS: METHOCARBAMOL 500 MG TABLET PO PRN (09:23)
[2023-05-19] MEDS: HYDROCORTISONE 0.5% TOPICAL CREAM 30 GM TUBE TP SCH ×2 (11:26→21:49)
[2023-05-19] MEDS: hydrOXYzine PAMOATE 25 MG CAPSULE (FP) PO PRN (15:42)
[2023-05-19] MEDS: MELATONIN 5 MG TABLETS PO SCH (21:48)
[2023-05-19] MEDS: THIAMINE HCL 100 MG TABLET (FP) PO SCH (21:49)
[2023-05-20] MEDS ORDERED: chlordiazePOXIDE HCL 10 MG CAPSULE PO ONE (05:00)
[2023-05-20] MEDS: PRENATAL VITAMINS W/ FOLIC ACID TABLET (FP) PO SCH (09:03)
[2023-05-20] MEDS: HYDROCORTISONE 0.5% TOPICAL CREAM 30 GM TUBE TP SCH (09:04)
[2023-05-20] MEDS: BUPRENORPHINE/NALOXONE 4 MG/1 MG FILM PACKET SL SCH (09:04)
[2023-05-20 09:46] VITALS: BP 110/74; PULSE 86; RESP 16; TEMP 96.9
== END 2023-05-20 09:57 | disposition other institution (70) | DRG 897 ==
LOC: YASAS 11:23 → Y3N 14:49
PROVIDERS: ADMIT Allergy & Immunology; ATTEND Surgery
PROC: HZ2ZZZZ Detoxification Services for Substance Abuse Treatment (ICD-10-PCS; principal; 2023-05-15)
DX: F11.23 Opioid dependence with withdrawal (principal); F13.20 Sedative, hypnotic or anxiolytic dependence, uncomplicated; F14.20 Cocaine dependence, uncomplicated; F10.230 Alcohol dependence with withdrawal, uncomplicated; F17.290 Nicotine dependence, other tobacco product, uncomplicated; F19.24 Other psychoactive substance dependence with psychoactive substance-induced mood disorder; G62.9 Polyneuropathy, unspecified; Z20.2 Contact with and (suspected) exposure to infections with a predominantly sexual mode of transmission; Z28.310 Unvaccinated for COVID-19; Z28.9 Immunization not carried out for unspecified reason; Z88.8 Allergy status to other drugs, medicaments and biological substances
CPT/HCPCS: 36415; 80053; 85027; 86780; 87389; 87491; 87591; 87635; 87661

== ENCOUNTER 2024-05-02 12:39 | Inpatient (IN) | payer OTHER ==
[2024-05-02 13:55] VITALS: BMI 18.3
[2024-05-02] MEDS ORDERED: NALOXONE HCL 0.4 MG/ML VIAL IM PRN (16:30)
[2024-05-02] MEDS ORDERED: MAG HYDROX/AL HYDROX/SIMETH 30 ML UNIT-DOSE CUP PO PRN (16:30)
[2024-05-02] MEDS ORDERED: BENZONATATE 200 MG CAPSULE PO PRN (16:30)
[2024-05-02] MEDS ORDERED: NICOTINE POLACRILEX 2 MG GUM BUC PRN (16:30)
[2024-05-02] MEDS ORDERED: POLYETHYLENE GLYCOL (HEALTHYLAX) 3350 17 GM PACKET PO PRN (16:30)
[2024-05-02] MEDS ORDERED: IBUPROFEN 400 MG TABLET (FP) PO PRN (16:30)
[2024-05-02] MEDS ORDERED: BENZOCAINE/MENTHOL (CHLORASEPTIC ) LOZENGE MM PRN (16:30)
[2024-05-02] MEDS ORDERED: ONDANSETRON *ODT* 4 MG TABLET SL PRN (16:30)
[2024-05-02] MEDS ORDERED: MAGNESIUM HYDROX 2400MG/30ML ORAL SUSPENSION 30 ML CUP PO PRN (16:30)
[2024-05-02] MEDS ORDERED: DICYCLOMINE HCL 10 MG CAPSULE PO PRN (16:30)
[2024-05-02] MEDS ORDERED: NICOTINE POLACRILEX 2 MG LOZENGE BC PRN (16:30)
[2024-05-02] MEDS ORDERED: NALOXONE (NARCAN) HCL 4 MG/0.1 ML SPRAY NS PRN (16:30)
[2024-05-02] MEDS: IBUPROFEN 600 MG TABLET (FP) PO PRN (18:31)
[2024-05-02] MEDS: hydrOXYzine PAMOATE 25 MG CAPSULE (FP) PO PRN (18:31)
[2024-05-02] MEDS: METHOCARBAMOL 500 MG TABLET PO PRN (18:31)
[2024-05-02] MEDS: BISMUTH SUBSALICYLATE 524 MG/30 ML PO PRN (18:55)
[2024-05-02] MEDS: LOPERAMIDE HCL 2 MG CAPSULE PO PRN (19:37)
[2024-05-02] MEDS: THIAMINE 100 MG TABLET PO SCH (22:33)
[2024-05-02] MEDS: MELATONIN 5 MG TABLETS PO SCH (22:34)
[2024-05-03] MEDS: PRENATAL VITAMINS W/ FOLIC ACID TABLET (FP) PO SCH (09:00)
[2024-05-03] MEDS: BUPRENORPHINE/NALOXONE 8 MG/2 MG FILM PACKET SL SCH (10:04)
[2024-05-03] MEDS: diazePAM 5 MG TABLET PO SCH (10:05)
[2024-05-03 15:09] LABS: HEMATOCRIT 40.8 % (32.4-45.2); HEMOGLOBIN 13.8 GM/dL (10.7-15.3); MCH 27.8 pg (25.7-33.7); MCHC 33.8 g/dl (32.0-36.0); MEAN CELL VOLUME 82.2 fl (80-96); MEAN PLT VOLUME 8.8 fl (7.5-11.1); PLATELET COUNT 392 10^3/uL (134-434); RBC 4.97 M/mm3 (3.60-5.2); RDW 15.3 % (11.6-15.6)
[2024-05-03 15:23] LABS: ALBUMIN 3.6 g/dl (3.4-5.0); CALCIUM 9.5 mg/dL (8.5-10.1)
[2024-05-03 15:26] LABS: CREATININE 0.9 mg/dL (0.55-1.3)
[2024-05-03 15:27] LABS: BILIRUBIN,TOTAL 0.3 mg/dL (0.2-1); TOT PROT 7.4 g/dl (6.4-8.2)
[2024-05-03 15:29] LABS: BLOOD UREA NITROGEN 11.6 mg/dL (7-18)
[2024-05-03] MEDS: guaiFENesin 600 MG TABLET.ER (FP) PO PRN (22:20)
[2024-05-04] MEDS: diazePAM 5 MG TABLET PO PRN (02:48)
[2024-05-04] MEDS: chlordiazePOXIDE HCL 25 MG CAPSULE PO PRN (13:31)
[2024-05-04] MEDS ORDERED: HYDROCORTISONE 2.5% TOPICAL CREAM 30 GM TUBE TP PRN (18:20)
[2024-05-04] MEDS ORDERED: WITCH HAZEL 50% (TUCKS) 40 PAD/JAR PAD TP PRN (18:21)
[2024-05-05] MEDS ORDERED: diazePAM 5 MG TABLET PO SCH (06:00)
[2024-05-05] MEDS: LIDOCAINE 4% PATCH TP SCH (09:53)
[2024-05-05] MEDS: METHYL SALICYLATE/MENTHOL 30 GM TUBE TP SCH (09:54)
[2024-05-05] MEDS: PHENYLEPHRINE HCL/COCOA BUTTER 1 EACH SUPP.RECT RC ONE (10:51)
[2024-05-05] MEDS: ATOMOXETINE HCL 40 MG CAPSULE PO SCH (15:07)
[2024-05-05] MEDS: ARIPiprazole 10 MG TABLET PO SCH (15:08)
[2024-05-05] MEDS: LIDOCAINE PATCH REMOVAL MC SCH (22:42)
[2024-05-05] MEDS: HYDROCORTISONE 2.5% TOPICAL CREAM 30 GM TUBE RC SCH (22:43)
[2024-05-05] MEDS: ACETAMINOPHEN 325 MG TABLET (FP) PO PRN (22:49)
[2024-05-06] MEDS: chlordiazePOXIDE HCL 25 MG CAPSULE PO SCH (05:55)
[2024-05-06] MEDS ORDERED: diazePAM 5 MG TABLET PO SCH (06:00)
[2024-05-07] MEDS ORDERED: chlordiazePOXIDE HCL 10 MG CAPSULE PO PRN
[2024-05-07] MEDS: chlordiazePOXIDE HCL 10 MG CAPSULE PO SCH (05:26)
[2024-05-07] MEDS ORDERED: diazePAM 5 MG TABLET PO ONE (06:00)
[2024-05-08] MEDS: chlordiazePOXIDE HCL 10 MG CAPSULE PO SCH (05:54)
[2024-05-08 13:23] VITALS: BP 126/80; PULSE 102; RESP 20; TEMP 97.8
[2024-05-09] MEDS ORDERED: chlordiazePOXIDE HCL 10 MG CAPSULE PO ONE (05:00)
== END 2024-05-08 16:19 | disposition other institution (70) | DRG 897 ==
LOC: YASAS 12:39 → Y6N 17:03
PROVIDERS: ADMIT Allergy & Immunology; ATTEND Family Medicine Addiction Medicine
PROC: HZ2ZZZZ Detoxification Services for Substance Abuse Treatment (ICD-10-PCS; principal; 2024-05-02)
DX: F10.230 Alcohol dependence with withdrawal, uncomplicated (principal); F11.20 Opioid dependence, uncomplicated; F14.20 Cocaine dependence, uncomplicated; F19.282 Other psychoactive substance dependence with psychoactive substance-induced sleep disorder; F19.280 Other psychoactive substance dependence with psychoactive substance-induced anxiety disorder; Z59.02 Unsheltered homelessness; F17.210 Nicotine dependence, cigarettes, uncomplicated; F19.24 Other psychoactive substance dependence with psychoactive substance-induced mood disorder; F41.9 Anxiety disorder, unspecified; F32.A Depression, unspecified; K64.4 Residual hemorrhoidal skin tags; G62.9 Polyneuropathy, unspecified; B18.2 Chronic viral hepatitis C; M54.50 Low back pain, unspecified; G89.29 Other chronic pain
CPT/HCPCS: 36415; 80053; 80305; 80307; 85027; 86780; 87811; 93005; 93010

== ENCOUNTER 2024-05-08 16:29 | Inpatient (IN) | payer OTHER ==
[2024-05-08 16:56] VITALS: RESP 18
[2024-05-08] MEDS ORDERED: NALOXONE HCL 0.4 MG/ML VIAL IVPUSH PRN (17:09)
[2024-05-08] MEDS ORDERED: NICOTINE POLACRILEX 2 MG GUM BUC PRN (17:09)
[2024-05-08] MEDS ORDERED: ACETAMINOPHEN 325 MG TABLET (FP) PO PRN (17:09)
[2024-05-08] MEDS ORDERED: NICOTINE POLACRILEX 2 MG LOZENGE BC PRN (17:09)
[2024-05-08] MEDS ORDERED: MAG HYDROX/AL HYDROX/SIMETH 30 ML UNIT-DOSE CUP PO PRN (17:09)
[2024-05-08] MEDS ORDERED: IBUPROFEN 600 MG TABLET (FP) PO PRN (17:09)
[2024-05-08] MEDS ORDERED: BENZOCAINE/MENTHOL (CHLORASEPTIC ) LOZENGE MM PRN (17:09)
[2024-05-08] MEDS ORDERED: guaiFENesin 600 MG TABLET.ER (FP) PO PRN (17:09)
[2024-05-08] MEDS ORDERED: POLYETHYLENE GLYCOL (HEALTHYLAX) 3350 17 GM PACKET PO PRN (17:09)
[2024-05-08] MEDS ORDERED: IBUPROFEN 400 MG TABLET (FP) PO PRN (17:09)
[2024-05-08] MEDS ORDERED: NALOXONE (NARCAN) HCL 4 MG/0.1 ML SPRAY NS PRN (17:09)
[2024-05-08] MEDS ORDERED: MAGNESIUM HYDROX 2400MG/30ML ORAL SUSPENSION 30 ML CUP PO PRN (17:09)
[2024-05-08] MEDS ORDERED: METHOCARBAMOL 500 MG TABLET PO PRN (17:09)
[2024-05-08] MEDS ORDERED: BENZONATATE 200 MG CAPSULE PO PRN (17:09)
[2024-05-08] MEDS ORDERED: LOPERAMIDE HCL 2 MG CAPSULE PO PRN (17:09)
[2024-05-08 17:38] VITALS: BMI 20.8
[2024-05-08] MEDS: THIAMINE 100 MG TABLET PO SCH (21:23)
[2024-05-08] MEDS: MELATONIN 5 MG TABLETS PO SCH (21:24)
[2024-05-09 07:16] VITALS: BP 137/85; PULSE 79; TEMP 97.5
[2024-05-09] MEDS: BUPRENORPHINE/NALOXONE 8 MG/2 MG FILM PACKET SL SCH (09:56)
[2024-05-09] MEDS: ATOMOXETINE HCL 40 MG CAPSULE PO SCH (09:57)
[2024-05-09] MEDS: PRENATAL VITAMINS W/ FOLIC ACID TABLET (FP) PO SCH (09:57)
[2024-05-09] MEDS: METHYL SALICYLATE/MENTHOL 30 GM TUBE TP SCH (11:01)
[2024-05-09] MEDS: ARIPiprazole 10 MG TABLET PO SCH (11:01)
[2024-05-09] MEDS ORDERED: HYDROCORTISONE 2.5% TOPICAL CREAM 30 GM TUBE TP SCH (22:00)
== END 2024-05-09 16:50 | disposition home or self-care (01) | DRG 895 ==
LOC: YASAS 16:29 → Y5N 16:30
PROVIDERS: ADMIT Allergy & Immunology; ATTEND Psychiatry & Neurology Pain Medicine
PROC: HZ42ZZZ Group Counseling for Substance Abuse Treatment, Cognitive-Behavioral (ICD-10-PCS; principal; 2024-05-08)
DX: F10.20 Alcohol dependence, uncomplicated (principal); F14.20 Cocaine dependence, uncomplicated; Z59.02 Unsheltered homelessness; F17.210 Nicotine dependence, cigarettes, uncomplicated; F32.A Depression, unspecified; M54.50 Low back pain, unspecified; G89.29 Other chronic pain; B18.2 Chronic viral hepatitis C; R76.11 Nonspecific reaction to tuberculin skin test without active tuberculosis

== ENCOUNTER 2024-06-09 16:54 | Inpatient (IN) | payer OTHER ==
[2024-06-09 17:55] VITALS: BMI 18.4
[2024-06-09] MEDS ORDERED: LOPERAMIDE HCL 2 MG CAPSULE PO PRN (22:46)
[2024-06-09] MEDS ORDERED: POLYETHYLENE GLYCOL (HEALTHYLAX) 3350 17 GM PACKET PO PRN (22:46)
[2024-06-09] MEDS ORDERED: DICYCLOMINE HCL 10 MG CAPSULE PO PRN (22:46)
[2024-06-09] MEDS ORDERED: BENZOCAINE/MENTHOL (CHLORASEPTIC ) LOZENGE MM PRN (22:46)
[2024-06-09] MEDS ORDERED: BISMUTH SUBSALICYLATE 524 MG/30 ML PO PRN (22:46)
[2024-06-09] MEDS ORDERED: ONDANSETRON *ODT* 4 MG TABLET SL PRN (22:46)
[2024-06-09] MEDS ORDERED: guaiFENesin 600 MG TABLET.ER (FP) PO PRN (22:46)
[2024-06-09] MEDS ORDERED: BENZONATATE 200 MG CAPSULE PO PRN (22:46)
[2024-06-09] MEDS ORDERED: MAGNESIUM HYDROX 2400MG/30ML ORAL SUSPENSION 30 ML CUP PO PRN (22:46)
[2024-06-09] MEDS ORDERED: MAG HYDROX/AL HYDROX/SIMETH 30 ML UNIT-DOSE CUP PO PRN (22:46)
[2024-06-09] MEDS ORDERED: IBUPROFEN 400 MG TABLET (FP) PO PRN (22:46)
[2024-06-09] MEDS ORDERED: ACETAMINOPHEN 325 MG TABLET (FP) PO PRN (22:46)
[2024-06-10 09:40] LABS: HEMOGLOBIN 11.3 GM/dL (10.7-15.3); MCHC 33.4 g/dl (32.0-36.0); MEAN PLT VOLUME 8.7 fl (7.5-11.1); PLATELET COUNT 281 10^3/uL (134-434); RBC 4.05 M/mm3 (3.60-5.2); RDW 14.4 % (11.6-15.6); WHITE BLOOD COUNT 7.6 K/mm3 (4.0-10.0)
[2024-06-10 09:57] LABS: CHLORIDE 108 mmol/L (98-107); SODIUM 144 mmol/L (136-145)
[2024-06-10 10:10] LABS: CALCIUM 9.1 mg/dL (8.5-10.1)
[2024-06-10 10:11] LABS: GLUCOSE,RANDOM 89 mg/dL (74-106)
[2024-06-10 10:12] LABS: ALBUMIN 2.6 g/dl (3.4-5.0); ANION GAP 3 mmol/L (4-13); BILIRUBIN,TOTAL 0.2 mg/dL (0.2-1); CO2 33 mmol/L (21-32); TOT PROT 5.6 g/dl (6.4-8.2)
[2024-06-10 10:13] LABS: ALK PHOS 79 U/L (45-117)
[2024-06-10 10:15] LABS: CREATININE 0.6 mg/dL (0.55-1.3); SGOT/AST 8 U/L (15-37); SGPT/ALT 12 U/L (13-61)
[2024-06-10] MEDS: PRENATAL VITAMINS W/ FOLIC ACID TABLET (FP) PO SCH (10:39)
[2024-06-10] MEDS: THIAMINE 100 MG TABLET PO SCH (22:36)
[2024-06-10] MEDS: MELATONIN 5 MG TABLETS PO SCH (22:36)
[2024-06-10] MEDS: hydrOXYzine PAMOATE 25 MG CAPSULE (FP) PO PRN (22:37)
[2024-06-10] MEDS: METHOCARBAMOL 500 MG TABLET PO PRN (22:37)
[2024-06-10] MEDS: IBUPROFEN 600 MG TABLET (FP) PO PRN (22:37)
[2024-06-11] MEDS: diazePAM 5 MG TABLET PO PRN (13:25)
[2024-06-11] MEDS: diazePAM 5 MG TABLET PO SCH (17:18)
[2024-06-12] MEDS: diazePAM 5 MG TABLET PO SCH (05:39)
[2024-06-13] MEDS: diazePAM 5 MG TABLET PO SCH (05:53)
[2024-06-13] MEDS: ATOMOXETINE HCL 40 MG CAPSULE PO SCH (10:13)
[2024-06-14] MEDS: diazePAM 5 MG TABLET PO ONE (06:08)
[2024-06-14 10:05] VITALS: BP 112/86; PULSE 71; RESP 18; TEMP 96.6
[2024-06-14] MEDS: NALOXONE (NYS OPIOID OVERDOSE PROGRAM) 4 MG/0.1 ML SPRAY NS PRN (10:59)
== END 2024-06-14 09:40 | disposition home or self-care (01) | DRG 897 ==
LOC: YASAS 16:54 → Y6N 23:54
PROVIDERS: ADMIT Allergy & Immunology; ATTEND Surgery
PROC: HZ2ZZZZ Detoxification Services for Substance Abuse Treatment (ICD-10-PCS; principal; 2024-06-09)
DX: F10.20 Alcohol dependence, uncomplicated (principal); F11.20 Opioid dependence, uncomplicated; F14.20 Cocaine dependence, uncomplicated; F90.9 Attention-deficit hyperactivity disorder, unspecified type; F41.9 Anxiety disorder, unspecified; B18.2 Chronic viral hepatitis C; M54.50 Low back pain, unspecified; G89.29 Other chronic pain; Z86.11 Personal history of tuberculosis; Z87.891 Personal history of nicotine dependence
CPT/HCPCS: 36415; 80053; 80305; 80307; 85027; 86780; 93005; 93010

== ENCOUNTER 2024-10-14 00:34 | Emergency (ER) | payer OTHER ==
[2024-10-14 00:40] VITALS: BP 145/82; PULSE 81; RESP 18; TEMP 98.9; BMI 18.4
[2024-10-14] MEDS ORDERED: AMOX TR/POT CLAV 875MG/125MG TABLETS (FP) ONE (01:23)
[2024-10-14] MEDS ORDERED: KETOROLAC TROMETHAMINE 15 MG/ML VIAL ONE (01:24)
[2024-10-14] MEDS ORDERED: LIDOCAINE 5% TOPICAL PATCH ONE (01:24)
[2024-10-14] MEDS ORDERED: CycloBENZAprine HCL 5 MG TABLET ONE (01:24)
[2024-10-14] MEDS: AMOX TR/POT CLAV 875MG/125MG TABLETS (FP) PO ONE (01:33)
[2024-10-14] MEDS: CycloBENZAprine HCL 10 MG TABLET (FP) PO ONE (01:34)
[2024-10-14] MEDS: LIDOCAINE 5% TOPICAL PATCH TP ONE (01:34)
[2024-10-14] MEDS: KETOROLAC TROMETHAMINE 15 MG/ML VIAL IM ONE (01:34)
[2024-10-14] MEDS ORDERED: LACTULOSE 20 GM/30 ML UDC (FOR ORAL USE ONLY) ONE (04:51)
[2024-10-14] MEDS: LACTULOSE 20 GM/30 ML UDC (FOR ORAL USE ONLY) PO ONE (04:54)
== END 2024-10-14 05:30 | disposition home or self-care (01) ==
LOC: JER 00:34
PROC: 3E0233Z Introduction of Anti-inflammatory into Muscle, Percutaneous Approach (ICD-10-PCS; principal; 2024-10-14)
DX: M54.41 Lumbago with sciatica, right side (principal)
CPT/HCPCS: 72131-TC; 96372; 99284-25

== ENCOUNTER 2024-11-14 13:11 | Inpatient (IN) | payer OTHER ==
[2024-11-14 13:39] VITALS: BMI 17.7
[2024-11-14] MEDS ORDERED: IBUPROFEN 400 MG TABLET (FP) PO PRN (14:45)
[2024-11-14] MEDS ORDERED: guaiFENesin 600 MG TABLET.ER (FP) PO PRN (14:45)
[2024-11-14] MEDS ORDERED: NALOXONE (NARCAN) HCL 4 MG/0.1 ML SPRAY NS PRN (14:45)
[2024-11-14] MEDS ORDERED: DICYCLOMINE HCL 10 MG CAPSULE PO PRN (14:45)
[2024-11-14] MEDS ORDERED: BENZOCAINE/MENTHOL (CHLORASEPTIC ) LOZENGE MM PRN (14:45)
[2024-11-14] MEDS ORDERED: LOPERAMIDE HCL 2 MG CAPSULE PO PRN (14:45)
[2024-11-14] MEDS ORDERED: MAG HYDROX/AL HYDROX/SIMETH 30 ML UNIT-DOSE CUP PO PRN (14:45)
[2024-11-14] MEDS ORDERED: BISMUTH SUBSALICYLATE 262 MG/15 ML BTL PO PRN (14:45)
[2024-11-14] MEDS ORDERED: ONDANSETRON *ODT* 4 MG TABLET SL PRN (14:45)
[2024-11-14] MEDS ORDERED: BENZONATATE 200 MG CAPSULE PO PRN (14:45)
[2024-11-14] MEDS ORDERED: POLYETHYLENE GLYCOL (HEALTHYLAX) 3350 17 GM PACKET PO PRN (14:45)
[2024-11-14] MEDS ORDERED: propRANOLol HCL 10 MG TABLET ONE (15:40)
[2024-11-14] MEDS ORDERED: diazePAM 5 MG TABLET ONE ×2 (15:40→17:21)
[2024-11-14] MEDS: propRANOLol HCL 10 MG TABLET PO ONE (15:42)
[2024-11-14] MEDS: diazePAM 5 MG TABLET PO ONE (15:42)
[2024-11-14] MEDS: diazePAM 5 MG TABLET PO SCH (17:25)
[2024-11-14] MEDS: IBUPROFEN 600 MG TABLET (FP) PO PRN (18:07)
[2024-11-14] MEDS: METHOCARBAMOL 500 MG TABLET PO PRN (18:07)
[2024-11-14] MEDS: hydrOXYzine PAMOATE 25 MG CAPSULE (FP) PO PRN (18:07)
[2024-11-14] MEDS: THIAMINE 100 MG TABLET PO SCH (22:10)
[2024-11-14] MEDS: MELATONIN 5 MG TABLETS PO SCH (22:10)
[2024-11-15] MEDS: BUPRENORPHINE/NALOXONE 8 MG/2 MG FILM PACKET SL SCH ×2 (10:05→13:20)
[2024-11-15] MEDS: PRENATAL VITAMINS W/ FOLIC ACID TABLET (FP) PO SCH (10:05)
[2024-11-15] MEDS: BUPRENORPHINE/NALOXONE 8 MG/2 MG FILM PACKET SL ONE (10:26)
[2024-11-15 10:54] LABS: HEMATOCRIT 40.8 % (34.1-44.9); HEMOGLOBIN 13.1 g/dL (11.2-15.7); MCHC 32.1 g/dl (32.2-35.5); MEAN CELL VOLUME 84.8 fl (79.4-94.8); MEAN PLT VOLUME 10.6 fl (9.4-12.3); PLATELET COUNT # 305 x10^3/uL (182-369); RDW 13.9 % (12.4-16.4)
[2024-11-15 11:02] LABS: CHLORIDE 102 mmol/L (98-107); POTASSIUM 3.8 mmol/L (3.5-5.1); SODIUM 140 mmol/L (136-145)
[2024-11-15 11:12] LABS: ALBUMIN 3.5 g/dl (3.4-5.0); ANION GAP 8 mmol/L (4-13); BLOOD UREA NITROGEN 24.1 mg/dL (7-18); CALCIUM 9.3 mg/dL (8.5-10.1); CO2 30 mmol/L (21-32); GLUCOSE,RANDOM 80 mg/dL (74-106)
[2024-11-15 11:15] LABS: SGPT/ALT 11 U/L (13-61)
[2024-11-15 11:16] LABS: BILIRUBIN,TOTAL 0.3 mg/dL (0.2-1); CREATININE 1.4 mg/dL (0.55-1.3); SGOT/AST 12 U/L (15-37); TOT PROT 7.1 g/dl (6.4-8.2)
[2024-11-15 11:18] LABS: ALK PHOS 104 U/L (45-117)
[2024-11-15] MEDS: LIDOCAINE 5% TOPICAL PATCH TP SCH (13:20)
[2024-11-15] MEDS: AMOX TR/POT CLAV 500MG/125MG TABLETS (FP) PO SCH (17:27)
[2024-11-15] MEDS: ACETAMINOPHEN 325 MG TABLET (FP) PO PRN (18:34)
[2024-11-15] MEDS: LIDOCAINE PATCH REMOVAL MC SCH (22:07)
[2024-11-16] MEDS: diazePAM 5 MG TABLET PO SCH (05:50)
[2024-11-16] MEDS: diazePAM 5 MG TABLET PO PRN (09:41)
[2024-11-16] MEDS: ACAMPROSATE CALCIUM 333 MG TABLET.DR PO SCH (13:37)
[2024-11-16] MEDS ORDERED: ACAMPROSATE CALCIUM 333 MG TABLET.DR PO SCH (14:00)
[2024-11-16] MEDS: MAGNESIUM HYDROX 2400MG/30ML ORAL SUSPENSION 30 ML CUP PO PRN (19:20)
[2024-11-17] MEDS: diazePAM 5 MG TABLET PO ONE (05:56)
[2024-11-17 06:57] VITALS: RESP 18
[2024-11-17 09:11] VITALS: BP 139/89; PULSE 81; TEMP 98.9
[2024-11-17] MEDS: LIDOCAINE 5% TOPICAL PATCH TP SCH (09:14)
== END 2024-11-17 12:15 | disposition home or self-care (01) | DRG 897 ==
LOC: YASAS 13:11 → Y6N 16:47
PROVIDERS: ADMIT Allergy & Immunology; ATTEND Allergy & Immunology
PROC: HZ2ZZZZ Detoxification Services for Substance Abuse Treatment (ICD-10-PCS; principal; 2024-11-14)
DX: F10.230 Alcohol dependence with withdrawal, uncomplicated (principal); F11.20 Opioid dependence, uncomplicated; F14.20 Cocaine dependence, uncomplicated; Z59.01 Sheltered homelessness; F17.210 Nicotine dependence, cigarettes, uncomplicated; D41.9 Neoplasm of uncertain behavior of unspecified urinary organ; M54.50 Low back pain, unspecified; G89.29 Other chronic pain; Z86.19 Personal history of other infectious and parasitic diseases; Z88.8 Allergy status to other drugs, medicaments and biological substances
CPT/HCPCS: 36415; 80053; 80305; 80307; 85027; 86780

== ENCOUNTER 2025-02-16 14:15 | Inpatient (IN) | payer OTHER ==
[2025-02-16 14:58] VITALS: BMI 19.2
[2025-02-16] MEDS ORDERED: IBUPROFEN 600 MG TABLET (FP) PO PRN (17:05)
[2025-02-16] MEDS ORDERED: BENZOCAINE/MENTHOL (CHLORASEPTIC ) LOZENGE MM PRN (17:05)
[2025-02-16] MEDS ORDERED: IBUPROFEN 400 MG TABLET (FP) PO PRN (17:05)
[2025-02-16] MEDS ORDERED: DICYCLOMINE HCL 10 MG CAPSULE PO PRN (17:05)
[2025-02-16] MEDS ORDERED: NALOXONE (NARCAN) HCL 4 MG/0.1 ML SPRAY NS PRN (17:05)
[2025-02-16] MEDS ORDERED: BENZONATATE 200 MG CAPSULE PO PRN (17:05)
[2025-02-16] MEDS ORDERED: MAG HYDROX/AL HYDROX/SIMETH 30 ML UNIT-DOSE CUP PO PRN (17:05)
[2025-02-16] MEDS ORDERED: LOPERAMIDE HCL 2 MG CAPSULE PO PRN (17:05)
[2025-02-16] MEDS ORDERED: BISMUTH SUBSALICYLATE 524 MG/30 ML PO PRN (17:05)
[2025-02-16] MEDS ORDERED: guaiFENesin 600 MG TABLET.ER (FP) PO PRN (17:05)
[2025-02-16] MEDS ORDERED: METHOCARBAMOL 500 MG TABLET ONE (20:56)
[2025-02-16] MEDS: METHOCARBAMOL 500 MG TABLET PO PRN (20:56)
[2025-02-16] MEDS: MELATONIN 5 MG TABLETS PO SCH (22:20)
[2025-02-16] MEDS: THIAMINE 100 MG TABLET PO SCH (22:20)
[2025-02-17 09:46] LABS: CHLORIDE 104 mmol/L (98-107); POTASSIUM 3.6 mmol/L (3.5-5.1); SODIUM 140 mmol/L (136-145)
[2025-02-17 09:52] LABS: HEMATOCRIT 36.3 % (34.1-44.9); HEMOGLOBIN 11.8 g/dL (11.2-15.7); MCHC 32.5 g/dl (32.2-35.5); MEAN CELL VOLUME 88.5 fl (79.4-94.8); MEAN PLT VOLUME 10.8 fl (9.4-12.3); PLATELET COUNT 305 x10^3/uL (182-369); RDW 13.3 % (12.4-16.4)
[2025-02-17 10:03] LABS: ALBUMIN 3.1 g/dl (3.4-5.0); ANION GAP 7 mmol/L (4-13); CO2 29 mmol/L (21-32)
[2025-02-17 10:04] LABS: GLUCOSE,RANDOM 112 mg/dL (74-106)
[2025-02-17 10:05] LABS: SGOT/AST 15 U/L (15-37); SGPT/ALT 15 U/L (13-61)
[2025-02-17 10:06] LABS: BILIRUBIN,TOTAL 0.4 mg/dL (0.2-1); CREATININE 0.6 mg/dL (0.55-1.3); TOT PROT 6.2 g/dl (6.4-8.2)
[2025-02-17 10:08] LABS: ALK PHOS 94 U/L (45-117)
[2025-02-17] MEDS: PRENATAL VITAMINS W/ FOLIC ACID TABLET (FP) PO SCH (11:00)
[2025-02-17] MEDS: hydrOXYzine PAMOATE 25 MG CAPSULE (FP) PO PRN (11:03)
[2025-02-17] MEDS: diazePAM 5 MG TABLET PO SCH (11:05)
[2025-02-17] MEDS: ARIPiprazole 5 MG TABLET PO SCH (11:12)
[2025-02-17] MEDS: diazePAM 5 MG TABLET PO PRN (13:05)
[2025-02-17] MEDS: BUPRENORPHINE/NALOXONE 8 MG/2 MG FILM PACKET SL SCH (13:05)
[2025-02-17] MEDS: MAGNESIUM HYDROX 2400MG/30ML ORAL SUSPENSION 30 ML CUP PO PRN (13:05)
[2025-02-17] MEDS: traZODone HCL 50 MG TABLET (FP) PO SCH (22:10)
[2025-02-17] MEDS: POLYETHYLENE GLYCOL (HEALTHYLAX) 3350 17 GM PACKET PO PRN (22:12)
[2025-02-18] MEDS: ACETAMINOPHEN 325 MG TABLET (FP) PO PRN (09:56)
[2025-02-19] MEDS: diazePAM 5 MG TABLET PO SCH (05:29)
[2025-02-19] MEDS: LACTULOSE 20 GM/30 ML UDC (FOR ORAL USE ONLY) PO ONE (19:58)
[2025-02-19] MEDS: DOCUSATE NA 100 MG/10 ML UNIT-DOSE CUPS PO ONE (23:28)
[2025-02-20] MEDS: diazePAM 5 MG TABLET PO SCH (05:48)
[2025-02-20] MEDS: ONDANSETRON *ODT* 4 MG TABLET SL PRN (10:19)
[2025-02-20] MEDS: BISACODYL 5 MG TABLET.DR (FP) PO ONE (11:45)
[2025-02-21] MEDS: diazePAM 5 MG TABLET PO ONE (05:39)
[2025-02-21 06:25] VITALS: TEMP 97.7
[2025-02-21 09:26] VITALS: BP 118/71; PULSE 90; RESP 12
== END 2025-02-21 10:23 | disposition home or self-care (01) | DRG 897 ==
LOC: YASAS 14:15 → Y3N 20:35
PROVIDERS: ADMIT Allergy & Immunology; ATTEND Allergy & Immunology
PROC: HZ2ZZZZ Detoxification Services for Substance Abuse Treatment (ICD-10-PCS; principal; 2025-02-16)
DX: F10.230 Alcohol dependence with withdrawal, uncomplicated (principal); F11.20 Opioid dependence, uncomplicated; F14.20 Cocaine dependence, uncomplicated; F17.210 Nicotine dependence, cigarettes, uncomplicated; F41.9 Anxiety disorder, unspecified; G62.9 Polyneuropathy, unspecified; G47.00 Insomnia, unspecified; M54.50 Low back pain, unspecified; G89.29 Other chronic pain; Z86.19 Personal history of other infectious and parasitic diseases; Z88.8 Allergy status to other drugs, medicaments and biological substances; Z86.11 Personal history of tuberculosis
CPT/HCPCS: 36415; 80053; 80305; 80307; 85027; 86780; 93005; 93010; Q0162